=== PATIENT | male | born 1975 | race Caucasian/White ===

== ENCOUNTER 2018-01-07 19:00 | Observation (INO) | payer BC ==
[2018-01-07] MEDS ORDERED: SODIUM CHLORIDE 0.9% 1,000 ML IV STA ×2 (19:23)
[2018-01-07] MEDS ORDERED: ONDANSETRON 4 MG/2 ML VIAL IVP STA (19:23)
[2018-01-07] MEDS ORDERED: MORPHINE SULFATE 2 MG/ML SYRINGE IVP STA (19:23)
[2018-01-07 19:55] LABS: Basophils % (A) 1 %; Eosinophils # (A) 0.2 k/uL (0-0.7); Eosinophils % (A) 4 %; HCT 45.9 % (39.0-53.0); HGB 15.6 gm/dL (13.0-17.5); Lymphocytes # (A) 2.1 k/uL (1.0-4.8); Lymphocytes % (A) 34 %; MCH 29.2 pg (25.0-35.0); MCV 85.8 fL (80.0-100.0); Mean Platelet Volume 8.7; Monocytes # (A) 0.5 k/uL (0-1.0); Monocytes % (A) 8 %; Neutrophils # (A) 3.1 k/uL (1.3-7.7); Neutrophils % (A) 52 %; Platelet Count 209 k/uL (150-450); RBC 5.36 m/uL (4.30-5.90); RDW 12.2 % (11.5-15.5); WBC 6.1 k/uL (3.8-10.6)
[2018-01-07 20:02] LABS: Appearance,Urine Clear (Clear); Bilirubin,Urine Negative (Negative); Blood,Urine Negative (Negative); Color,Urine Yellow; Glucose,Urine (UA) Negative (Negative); Ketones,Urine Negative (Negative); Leukocyte Esterase,Urine Negative (Negative); Nitrite,Urine Negative (Negative); Protein,Urine Negative (Negative); Specific Gravity,Urine 1.015 (1.001-1.035)
[2018-01-07 20:16] LABS: ALT 29 U/L (21-72); AST 21 U/L (17-59); Albumin 4.2 g/dL (3.5-5.0); Alkaline Phosphatase 93 U/L (38-126); Amylase 39 U/L (30-110); Anion Gap 10 mmol/L; Blood Urea Nitrogen 14 mg/dL (9-20); Calcium 9.3 mg/dL (8.4-10.2); Carbon Dioxide 23 mmol/L (22-30); Chloride 107 mmol/L (98-107); Glucose 86 mg/dL (74-99); Lipase 51 U/L (23-300); Sodium 140 mmol/L (137-145); Total Bilirubin 0.3 mg/dL (0.2-1.3); Total Protein 6.9 g/dL (6.3-8.2)
--- NOTE | 2018-01-07 20:30 | XR ---
EXAMINATION TYPE: XR KUB DATE OF EXAM: 01/07/2018 COMPARISON: NONE HISTORY: Right-sided pain TECHNIQUE: 2 views FINDINGS: Bowel gas pattern is normal. There is no sign of intestinal obstruction or pneumoperitoneum . Fecal pattern is normal. There is no evidence of a mass. IMPRESSION: Nonacute abdomen.
--- NOTE | 2018-01-07 20:59 | US ---
EXAMINATION TYPE: US abdomen complete DATE OF EXAM: 01/07/2018 COMPARISON: 03/24/2016 CLINICAL HISTORY: abdominal pain. RUQ pain, Had coffee 5 hours ago EXAM MEASUREMENTS: Liver Length: 16.3 cm Gallbladder Wall: 0.3 cm CHD: 0.3 cm Spleen: 11.6 cm Right Kidney: 10.5 x 5.5 x 5.0 cm Left Kidney: 11.8 x 5.6 x 6.1 cm Limited exam due to overlying bowel gas Pancreas: Obscured by bowel gas Liver: Appears course. Gallbladder: GB wall upper limits of normal. No stones or sludge seen. Evidence for sonographic Arellano's sign: neg CBD: Obscured by overlying bowel gas CHD: wnl Spleen: wnl Right Kidney: wnl Left Kidney: lower pole cystic appearing lesion = 4.1 x 2.5 x 3.1 cm Upper IVC: wnl Abd Aorta: Distal portion obscured by overlying bowel gas IMPRESSION: No gallstones or dilated ducts. Borderline gallbladder wall thickening. Cortical thinning in the lower pole right kidney. No hydronephrosis. Exophytic left renal cortical cyst. Cyst is incre ased in size compared to old exam.
--- NOTE | 2018-01-07 21:06 | ED ---
Abdominal Pain HPI - General Chief Complaint: Abdominal Pain Stated Complaint: Abd.pain Time Seen by Provider: 01/07/18 19:14 Source: patient Mode of arrival: ambulatory Limitations: no limitations - History of Present Illness Initial Comments: 42 years old male has right upper quadrant chest is ongoing for last 3 days he was seen in one of the urgent care they referred him over here he denies any fever no chills he been nauseous no vomiting he has no history of abdominal surgeries in the in the past and now he denies any history of peptic ulcer disease. Review of system is unremarkable otherwise - Related Data Allergies Allergy/AdvReac Type Severity Reaction Status Date / Time No Known Allergies Allergy Verified 01/07/18 19:11 Review of Systems ROS Statement: Those systems with pertinent positive or pertinent negative responses have been documented in the HPI. ROS Other: All systems not noted in ROS Statement are negative. Past Medical History Past Medical History: No Reported History History of Any Multi-Drug Resistant Organisms: None Reported Additional Past Surgical History / Comment(s): kidney surgery Past Psychological History: No Psychological Hx Reported Smoking Status: Never smoker Past Alcohol Use History: Occasional Past Drug Use History: None Reported General Exam - General Exam Comments Initial Comments: General: The patient is awake and alert, in no distress, and does not appear acutely ill. Skin: Skin is warm and dry and no rashes or lesions are noted. Eye: Pupils are equal, round and reactive to light, extra-ocular movements are intact; there is normal conjunctiva bilaterally. Ears, nose, mouth and throat: There are moist mucous membranes and no oral lesions. Neck: The neck is supple, there is no tenderness or JVD. Cardiovascular: There is a regular rate and rhythm. No murmur, rub or gallop is appreciated. Respiratory: To auscultation bilateral, no wheezing no rhonchi no distress respiratory guevara noticed Gastrointestinal: Tender in right upper quadrant area, patient does guard to some extent positive bowel sounds no guarding no rebounds. Back: There is no tenderness to palpation in the midline. There is no obvious deformity. Musculoskeletal: Normal ROM, no tenderness, There is no pedal edema. There is no calf tenderness or swelling. No cords were appreciated. Neurological: CN II-XII intact, Cranial nerves III through XII are intact. There are no obvious motor or sensory deficits. Coordination appears grossly intact. Speech is normal. Psychiatric: Cooperative, appropriate mood & affect, normal judgment. Limitations: no limitations Course Vital Signs 01/07/18 19:11 Temperature 98.1 F Pulse Rate 71 Respiratory 18 Rate Blood Pressure 144/80 O2 Sat by Pulse 98 Oximetry Medical Decision Making - Medical Decision Making Shouldn't is tender in the right upper quadrant area, CBC is normal, his afebrile liver functions are within normal range ultrasound of the right upper quadrant showed some thickening of the gallbladder wall no gallstones noticed him a considering is tenderness over the right upper quadrant area. Dr. Dr. Joshi she could watch him overnight because he is in a lot of pain - Lab Data Result diagrams: 01/07/18 19:40 01/07/18 19:40 Lab Results 01/07/18 01/07/18 01/07/18 Range/Units 19:40 19:40 19:50 WBC 6.1 (3.8-10.6) k/uL RBC 5.36 (4.30-5.90) m/uL Hgb 15.6 (13.0-17.5) gm/dL Hct 45.9 (39.0-53.0) % MCV 85.8 (80.0-100.0) fL MCH 29.2 (25.0-35.0) pg MCHC 34.0 (31.0-37.0) g/dL RDW 12.2 (11.5-15.5) % Plt Count 209 (150-450) k/uL Neutrophils % 52 % Lymphocytes % 34 % Monocytes % 8 % Eosinophils % 4 % Basophils % 1 % Neutrophils # 3.1 (1.3-7.7) k/uL Lymphocytes # 2.1 (1.0-4.8) k/uL Monocytes # 0.5 (0-1.0) k/uL Eosinophils # 0.2 (0-0.7) k/uL Basophils # 0.0 (0-0.2) k/uL Sodium 140 (137-145) mmol/L Potassium 4.0 (3.5-5.1) mmol/L Chloride 107 (98-107) mmol/L Carbon Dioxide 23 (22-30) mmol/L Anion Gap 10 mmol/L BUN 14 (9-20) mg/dL Creatinine 0.80 (0.66-1.25) mg/dL Est GFR (CKD-EPI)AfAm >90 (>60 ml/min/1.73 sqM) Est GFR (CKD-EPI)NonAf >90 (>60 ml/min/1.73 sqM) Glucose 86 (74-99) mg/dL Calcium 9.3 (8.4-10.2) mg/dL Total Bilirubin 0.3 (0.2-1.3) mg/dL AST 21 (17-59) U/L ALT 29 (21-72) U/L Alkaline Phosphatase 93 (38-126) U/L Total Protein 6.9 (6.3-8.2) g/dL Albumin 4.2 (3.5-5.0) g/dL Amylase 39 (30-110) U/L Lipase 51 (23-300) U/L Urine Color Yellow Urine Appearance Clear (Clear) Urine pH 6.0 (5.0-8.0) Ur Specific [place] 1.015 (1.001-1.035) Urine Protein Negative (Negative) Urine Glucose (UA) Negative (Negative) Urine Ketones Negative (Negative) Urine Blood Negative (Negative) Urine Nitrite Negative (Negative) Urine Bilirubin Negative (Negative) Urine Urobilinogen 2.0 (<2.0) mg/dL Ur Leukocyte Esterase Negative (Negative) Disposition Clinical Impression: Right upper quadrant pain Disposition: ADMITTED IP TO THIS HOSP Condition: Good Referrals: Maira Meneses MD [Primary Care Provider] - 1-2 days
[2018-01-07] MEDS ORDERED: SODIUM CHLORIDE 0.9% 1,000 ML IV ONE (21:11)
[2018-01-07] MEDS ORDERED: PIPERACILLIN-TAZOBACTAM 3.375 GM in DEXTROSE/WATER 1 50ML.BAG IVPB STA (21:13)
[2018-01-07 22:36] VITALS: RESP 16; BMI 31.7
[2018-01-07] MEDS ORDERED: MORPHINE SULFATE 4 MG/ML SYRINGE IVP PRN (22:53)
[2018-01-08] MEDS: PIPERACILLIN-TAZOBACTAM 3.375 GM in DEXTROSE/WATER 1 50ML.BAG IVPB SCH ×2 (05:18→14:52)
--- NOTE | 2018-01-08 13:17 | P.GSHP ---
History of Present Illness H&P Date: 01/08/18 CHIEF COMPLAINT: Right upper quadrant abdominal pain 4 days HISTORY OF PRESENT ILLNESS: The patient is a 42-year-old male who presents with history of right upper quadrant abdominal pain for 4 days following eating fried pork chops. Reported the pain started 2 hours after his lunch. He continued to work the next day after. Secondary to severe pain right upper quadrant radiating to the right upper back he presented to the emergency room. He had ultrasound which had been initially negative for gallstones. He does report a strong family history of gallbladder disease were his father had his gallbladder removal. Since admission, he still complains of right upper quadrant discomfort however the pain has been improved. He also reports mild right shoulder discomfort. 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 PAST MEDICAL HISTORY: Please see list PAST SURGICAL HISTORY: Please see list MEDICATIONS: Please see list ALLERGIES: Denies. SOCIAL HISTORY: No illicit drug use or recent tobacco use FAMILY HISTORY: Pertinent for gallbladder disease REVIEW OF ORGAN SYSTEMS: CONSTITUTIONAL: No reports of fevers or chills. HEENT: Denies any troubles with the vision or hearing. ENDOCRINE: No reports of hypothyroidism. No diabetes. RESPIRATORY: No recent pneumonias. CARDIOVASCULAR: Denies chest pain or palpitations GI: No blood in stools or constipation. In the past, he reports no abdominal pain after eating fatty foods. MUSCULOSKELETAL: Has occasional joint pain including back pain. NEURO: No seizure disorders or headaches. No recent stroke. PSYCH: No depression or suicidal ideation. HEMATOLOGIC: No personal or family history of DVTs or pulmonary emboli. PHYSICAL EXAM: VITAL SIGNS: Afebrile vital signs stable GENERAL: Well-developed pleasant male in no acute distress. HEENT: No scleral icterus. Extraocular movements grossly intact. Moist buccal mucosa. NECK: Supple without lymphadenopathy. CHEST: Unlabored respirations. Equal bilateral excursions. CARDIOVASCULAR: Regular rate regular rhythm rhythm. Distal 2+ pulses. ABDOMEN: Soft, nondistended. Tender along the right upper quadrant, and right upper back MUSCULOSKELETAL: No clubbing, cyanosis, or edema. NEURO : No focal or lateralizing signs. Cranial nerves II-12 within normal limits. PSYCH: Alert and oriented to person, place and time. SKIN: Profuse. Good skin turgor ASSESSMENT: 1. Right upper quadrant abdominal pain 2. Family history of gallbladder disease in his father STUDIES: Ultrasound imaging personally reviewed. Previous HIDA scan also personally reviewed. Both findings tender for acute cholecystitis. PLAN: 1. With the severity is with pain, recommend repeat HIDA scan to exclude acute cholecystitis 2. Additionally low-fat diet advised 3. For acute cholecystitis, then he will need urgent surgical intervention versus antibiotics 4. Alternatively, right upper quadrant abdominal may also be secondary to duodenal peptic ulcers. Will need an upper endoscopy at some point. 5. Will start proton pump inhibitors as well. Past Medical History Past Medical History: No Reported History History of Any Multi-Drug Resistant Organisms: None Reported Additional Past Surgical History / Comment(s): kidney surgery Past Anesthesia/Blood Transfusion Reactions: No Reported Reaction Past Psychological History: No Psychological Hx Reported Smoking Status: Former smoker Past Alcohol Use History: Occasional Past Drug Use History: None Reported Medications and Allergies Home Medications Medication Instructions Recorded Confirmed Type Vit C/E/Zn/Coppr/Lutein/Zeaxan 1 cap PO QAM 01/07/18 01/07/18 History [Preservision Areds 2 Softgel] Allergies Allergy/AdvReac Type Severity Reaction Status Date / Time No Known Allergies Allergy Verified 01/07/18 21:19 Surgical - Exam Vital Signs Temp Pulse Resp BP Pulse Ox 98.1 F 71 18 144/80 98 01/07/18 19:11 01/07/18 19:11 01/07/18 19:11 01/07/18 19:11 01/07/18 19:11 Results - Labs 01/07/18 19:40 01/07/18 19:40 Diabetes panel 01/07/18 Range/Units 19:40 Sodium 140 (137-145) mmol/L Potassium 4.0 (3.5-5.1) mmol/L Chloride 107 (98-107) mmol/L Carbon Dioxide 23 (22-30) mmol/L BUN 14 (9-20) mg/dL Creatinine 0.80 (0.66-1.25) mg/dL Glucose 86 (74-99) mg/dL Calcium 9.3 (8.4-10.2) mg/dL AST 21 (17-59) U/L ALT 29 (21-72) U/L Alkaline Phosphatase 93 (38-126) U/L Total Protein 6.9 (6.3-8.2) g/dL Albumin 4.2 (3.5-5.0) g/dL Calcium panel 01/07/18 Range/Units 19:40 Calcium 9.3 (8.4-10.2) mg/dL Albumin 4.2 (3.5-5.0) g/dL Pituitary panel 01/07/18 Range/Units 19:40 Sodium 140 (137-145) mmol/L Potassium 4.0 (3.5-5.1) mmol/L Chloride 107 (98-107) mmol/L Carbon Dioxide 23 (22-30) mmol/L BUN 14 (9-20) mg/dL Creatinine 0.80 (0.66-1.25) mg/dL Glucose 86 (74-99) mg/dL Calcium 9.3 (8.4-10.2) mg/dL Adrenal panel 01/07/18 Range/Units 19:40 Sodium 140 (137-145) mmol/L Potassium 4.0 (3.5-5.1) mmol/L Chloride 107 (98-107) mmol/L Carbon Dioxide 23 (22-30) mmol/L BUN 14 (9-20) mg/dL Creatinine 0.80 (0.66-1.25) mg/dL Glucose 86 (74-99) mg/dL Calcium 9.3 (8.4-10.2) mg/dL Total Bilirubin 0.3 (0.2-1.3) mg/dL AST 21 (17-59) U/L ALT 29 (21-72) U/L Alkaline Phosphatase 93 (38-126) U/L Total Protein 6.9 (6.3-8.2) g/dL Albumin 4.2 (3.5-5.0) g/dL - Imaging US - abdomen: report reviewed, image reviewed (Previous HIDA scan from 2016 also reviewed) Assessment and Plan (1) Family history of gallbladder disease in father Current Visit: Yes Status: Acute Code(s): Z83.79 - FAMILY HISTORY OF OTHER DISEASES OF THE DIGESTIVE SYSTEM SNOMED Code(s): 415823755 (2) Right upper quadrant pain Current Visit: Yes Status: Acute Code(s): R10.11 - RIGHT UPPER QUADRANT PAIN SNOMED Code(s): 965969859 (3) Obesity due to excess calories Current Visit: Yes Status: Acute Code(s): E66.09 - OTHER OBESITY DUE TO EXCESS CALORIES SNOMED Code(s): 029672054 (4) BMI 31.0-31.9,adult Current Visit: Yes Status: Acute Code(s): Z68.31 - BODY MASS INDEX (BMI) 31.0-31.9, ADULT SNOMED Code(s): 018162111
[2018-01-08 15:01] VITALS: BP 124/80; PULSE 62; TEMP 98.2
--- NOTE | 2018-01-08 19:35 | NM ---
EXAMINATION TYPE: NM hepatobiliary w CCK DATE OF EXAM: 01/08/2018 COMPARISON: Ultrasound abdomen 01/07/2018, previous hepatobiliary scan March 2016 HISTORY: Cholecystitis TECHNIQUE: After the intravenous administration of 5 mCi Tc 99m Mebrofenin hepatobiliary scintigraphy is performed. Immediate images post injection. FINDINGS: There is satisfactory initial accumulation of tracer by the liver. The gallbladder is visualized wit hin 14 minutes. The small bowel activity is noted within a minutes. At one hour CCK was administere d, patient was injected with 1.95 mcg of Kinevac, and gallbladder ejection fraction is calculated at 41 %, in the normal range. Therefore there is no scintigraphic evidence of cystic or common bile srinivas t obstruction to suggest acute cholecystitis or gallbladder dyskinesia. IMPRESSION: Exam is within normal limits.
--- NOTE | 2018-01-09 16:22 | P.DS ---
Providers Date of admission: 01/07/18 21:11 Expected date of discharge: 01/08/18 Attending physician: Nadeen Joshi Primary care physician: Maira Meneses - Discharge Diagnosis(es) (1) Family history of gallbladder disease in father Status: Acute (2) Right upper quadrant pain Status: Acute (3) Obesity due to excess calories Status: Acute (4) BMI 31.0-31.9,adult Status: Acute Hospital Course: CHIEF COMPLAINT: Right upper quadrant abdominal pain 4 days HISTORY OF PRESENT ILLNESS: The patient is a 42-year-old male who presents with history of right upper quadrant abdominal pain for 4 days following eating fried pork chops. Reported the pain started 2 hours after his lunch. He continued to work the next day after. Secondary to severe pain right upper quadrant radiating to the right upper back he presented to the emergency room. He had ultrasound which had been initially negative for gallstones. He does report a strong family history of gallbladder disease were his father had his gallbladder removal. Since admission, he still complains of right upper quadrant discomfort however the pain has been improved. He also reports mild right shoulder discomfort. 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 PAST MEDICAL HISTORY: Please see list PAST SURGICAL HISTORY: Please see list MEDICATIONS: Please see list ALLERGIES: Denies. SOCIAL HISTORY: No illicit drug use or recent tobacco use FAMILY HISTORY: Pertinent for gallbladder disease REVIEW OF ORGAN SYSTEMS: CONSTITUTIONAL: No reports of fevers or chills. HEENT: Denies any troubles with the vision or hearing. ENDOCRINE: No reports of hypothyroidism. No diabetes. RESPIRATORY: No recent pneumonias. CARDIOVASCULAR: Denies chest pain or palpitations GI: No blood in stools or constipation. In the past, he reports no abdominal pain after eating fatty foods. MUSCULOSKELETAL: Has occasional joint pain including back pain. NEURO: No seizure disorders or headaches. No recent stroke. PSYCH: No depression or suicidal ideation. HEMATOLOGIC: No personal or family history of DVTs or pulmonary emboli. PHYSICAL EXAM: VITAL SIGNS: Afebrile vital signs stable GENERAL: Well-developed pleasant male in no acute distress. HEENT: No scleral icterus. Extraocular movements grossly intact. Moist buccal mucosa. NECK: Supple without lymphadenopathy. CHEST: Unlabored respirations. Equal bilateral excursions. CARDIOVASCULAR: Regular rate regular rhythm rhythm. Distal 2+ pulses. ABDOMEN: Soft, nondistended. Tender along the right upper quadrant, and right upper back MUSCULOSKELETAL: No clubbing, cyanosis, or edema. NEURO : No focal or lateralizing signs. Cranial nerves II-12 within normal limits. PSYCH: Alert and oriented to person, place and time. SKIN: Profuse. Good skin turgor ASSESSMENT: 1. Right upper quadrant abdominal pain 2. Family history of gallbladder disease in his father STUDIES: Ultrasound imaging personally reviewed. Previous HIDA scan also personally reviewed. Both findings tender for acute cholecystitis. PLAN: 1. With the severity is with pain, recommend repeat HIDA scan to exclude acute cholecystitis 2. Additionally low-fat diet advised 3. For acute cholecystitis, then he will need urgent surgical intervention versus antibiotics 4. Alternatively, right upper quadrant abdominal may also be secondary to duodenal peptic ulcers. Will need an upper endoscopy at some point. 5. Will start proton pump inhibitors as well. ADDENDUM: Inpatient HIDA scan demonstrates no evidence of acute cholecystitis. Patient was tolerating diet and stable for discharge. Low-fat diet was advised. Pertinent Studies: HIDA scan negative for acute cholecystitis Ultrasound negative for gallstones Patient Condition at Discharge: Stable Plan - Discharge Summary New Discharge Prescriptions: New Omeprazole 40 mg PO DAILY #14 capsule. No Action Vit C/E/Zn/Coppr/Lutein/Zeaxan [Preservision Areds 2 Softgel] 1 cap PO QAM Discharge Medication List Vit C/E/Zn/Coppr/Lutein/Zeaxan [Preservision Areds 2 Softgel] 1 cap PO QAM 01/07 [History] Omeprazole 40 mg PO DAILY #14 capsule. 01/08/18 [Rx] Follow up Appointment(s)/Referral(s): Nadeen Joshi MD [STAFF PHYSICIAN] - 01/25/18 Maira Meneses MD [Primary Care Provider] - 1-2 days Patient Instructions/Handouts: Low Fat Diet (DC) Activity/Diet/Wound Care/Special Instructions: Low-fat diet only. Discharge Disposition: HOME SELF-CARE
== END 2018-01-08 20:58 | disposition home or self-care (01) ==
LOC: EC 19:00 → 3SUR 21:11
PROVIDERS: ADMIT Surgery Plastic and Reconstructive Surgery; ATTEND Surgery Plastic and Reconstructive Surgery
DX: R10.11 Right upper quadrant pain (principal); R11.0 Nausea; M25.511 Pain in right shoulder; E66.09 Other obesity due to excess calories; Z68.31 Body mass index [BMI] 31.0-31.9, adult; Z87.891 Personal history of nicotine dependence; Z83.79 Family history of other diseases of the digestive system
CPT/HCPCS: 99285 ×2; 96365 ×2; 96375 ×3; 96361 ×5; 96366 ×2; 36415; 80053; 82150; 83605; 83690; 85025; 81003; 87040; 74018; 76700; 78227; G0378 ×2; A9537; J2405; J2805; J2270; J2543 ×2

== ENCOUNTER → 2018-11-29 | Outpatient (CLI) | payer BC ==
--- NOTE | 2018-11-29 10:24 | CT ---
EXAMINATION TYPE: CT abdomen pelvis w con DATE OF EXAM: 11/29/2018 COMPARISON: Complete abdominal ultrasound January 07, 2018 HISTORY: Left lower quadrant pain CT DLP: 1479.9 mGycm, Automated Exposure Control for Dose Reduction was Utilized. CONTRAST: CT scan of the abdomen and pelvis is performed without oral but with IV Contrast, patient injected wi th 100 mL of Isovue 300. FINDINGS: LUNG BASES: No significant abnormality is appreciated. LIVER/GB: Liver is diffusely low dense consistent with fatty infiltration. Findings correlate with ul trasound. PANCREAS: No significant abnormality is seen. SPLEEN: No significant abnormality is seen. ADRENALS: No significant abnormality is seen. KIDNEYS: There is slightly lobulated otherwise simple appearing 3.3 cm thin-walled cyst laterally low er pole of the left kidney. Subcentimeter cyst is seen just superior to this. Cortical thinning right kidney lower pole level is redemonstrated. There is symmetric cortical medullary uptake and excretio n without hydronephrosis seen bilaterally. Some scattered pelvic phleboliths are present. BOWEL: Evaluation bowel slightly suboptimal secondary to lack of enteric contrast. There is no suspic ion of small or large bowel dilatation. Normal-appearing appendix is seen from cecum inferiorly in th e right lower quadrant. There are 1-2 diverticula in the sigmoid colon with mild fat stranding adjace nt to one diverticula coronal image 35 and axial image 67 consistent with a mild uncomplicated acute diverticulitis left upper pelvis proximal sigmoid colon level. No free air is seen. A well-formed flu id collection or abscess is noted. PROSTATE/SEMINAL VESICLES: Prostate gland is normal in size with central calcifications. LYMPH NODES: No greater than 1cm abdominal or pelvic lymph nodes are appreciated. OSSEOUS STRUCTURES: Mild facet arthropathy lower lumbar spine is seen. OTHER: There are small fat-containing bilateral inguinal hernias. IMPRESSION: CT findings are consistent with a mild uncomplicated acute diverticulitis proximal sigmoi d colon in the left upper pelvis. Results communicated to ordering physician via telephone at time of dictation. A Document Only message has been documented for Maira Meneses MD in the [employer] system on 11/29/2018 10:22 AM, Message ID [id number].
== END | disposition home or self-care (01) ==
LOC: RADCTMAIN 09:32
PROVIDERS: ATTEND Internal Medicine
DX: R10.30 Lower abdominal pain, unspecified (principal)
CPT/HCPCS: 74177; Q9967

== ENCOUNTER 2019-07-10 10:43 | Observation (INO) | payer BC ==
--- NOTE | 2019-07-10 11:21 | ED ---
General Adult HPI - General Chief complaint: Abdominal Pain Stated complaint: fever, pain in rt side Time Seen by Provider: 07/10/19 11:00 Source: patient, RN notes reviewed, old records reviewed Mode of arrival: ambulatory Limitations: no limitations - History of Present Illness Initial comments: This 44-year-old male who presents emergency Department with a past medical history significant for diverticulitis. Patient comes in today complaining of r ight-sided mid abdominal pain. Patient states this started early Wednesday morning and discontinued since then. Patient states pressing on that point causes significant pain. Patient states he did vomit on Wednesday but didn't vomit on Wednesday and felt a little better. Patient states he continues to have the pain however patient is not vomiting currently had no diarrhea. Patient states he had fevers on Wednesday but they're gone currently. Patient denies any cough. Patient denies difficulty breathing shortness of breath. Patient denies chest pain. Patient denies headache patient denies numbness weakness. Patient denies lightheadedness or dizziness. He says the child he had some sort of kidney surgery patient does not know what it was and his mother does not remember because she is 86 - Related Data Home Medications Medication Instructions Recorded Confirmed Vit C/E/Zn/Coppr/Lutein/Zeaxan 1 cap PO QAM 01/07/18 01/07/18 [Preservision Areds 2 Softgel] Previous Rx's Medication Instructions Recorded Omeprazole 40 mg PO DAILY #14 capsule. 01/08/18 Allergies Allergy/AdvReac Type Severity Reaction Status Date / Time No Known Allergies Allergy Verified 07/10/19 10:59 Review of Systems ROS Statement: Those systems with pertinent positive or pertinent negative responses have been documented in the HPI. ROS Other: All systems not noted in ROS Statement are negative. Past Medical History Past Medical History: No Reported History Additional Past Medical History / Comment(s): diverticulitis, thicken nair of gallbladder History of Any Multi-Drug Resistant Organisms: None Reported Additional Past Surgical History / Comment(s): kidney surgery Past Anesthesia/Blood Transfusion Reactions: No Reported Reaction Past Psychological History: No Psychological Hx Reported Smoking Status: Former smoker Past Alcohol Use History: Occasional Past Drug Use History: None Reported General Exam - General Exam Comments Initial Comments: GENERAL: Patient is well-developed and well-nourished. Patient is nontoxic and well- hydrated and is in mild distress. ENT: Neck is soft and supple. No significant lymphadenopathy is noted. Oropharynx is clear. Moist mucous membranes. Neck has full range of motion without eliciting any pain. EYES: The sclera were anicteric and conjunctiva were pink and moist. Extraocular movements were intact and pupils were equal round and reactive to light. Eyelids were unremarkable. PULMONARY: Unlabored respirations. Good breath sounds bilaterally. No audible rales rhonchi or wheezing was noted. CARDIOVASCULAR: There is a regular rate and rhythm without any murmurs gallops or rubs. ABDOMEN: Patient has point tenderness in the right mid flank. Right upper quadrant does not have tenderness in the right upper quadrant does not have tenderness SKIN: Skin is clear with no lesions or rashes and otherwise unremarkable. NEUROLOGIC: Patient is alert and oriented x3. Cranial nerves II through XII are grossly intact. Motor and sensory are also intact. Normal speech, volume and content. Symmetrical smile. MUSCULOSKELETAL: Normal extremities with adequate strength and full range of motion. No lower extremity swelling or edema. No calf tenderness. LYMPHATICS: No significant lymphadenopathy is noted PSYCHIATRIC: Normal psychiatric evaluation. Limitations: no limitations Course Vital Signs 07/10/19 10:59 Temperature 98 F Pulse Rate 90 Respiratory 18 Rate Blood Pressure 161/97 O2 Sat by Pulse 97 Oximetry Medical Decision Making - Medical Decision Making Computed tomography scan showed acute appendicitis. Spoke with Dr. Paul Jerez came down immediately to see the patient and scheduled surgery for the afternoon. - Lab Data Result diagrams: 07/10/19 11:23 07/10/19 11:23 Lab Results 07/10/19 07/10/19 07/10/19 Range/Units 11:23 11:23 12:20 WBC 7.2 (3.8-10.6) k/uL RBC 5.37 (4.30-5.90) m/uL Hgb 15.5 (13.0-17.5) gm/dL Hct 46.6 (39.0-53.0) % MCV 86.6 (80.0-100.0) fL MCH 28.9 (25.0-35.0) pg MCHC 33.3 (31.0-37.0) g/dL RDW 11.9 (11.5-15.5) % Plt Count 223 (150-450) k/uL Neutrophils % 65 % Lymphocytes % 23 % Monocytes % 7 % Eosinophils % 2 % Basophils % 1 % Neutrophils # 4.6 (1.3-7.7) k/uL Lymphocytes # 1.7 (1.0-4.8) k/uL Monocytes # 0.5 (0-1.0) k/uL Eosinophils # 0.1 (0-0.7) k/uL Basophils # 0.0 (0-0.2) k/uL Sodium 138 (137-145) mmol/L Potassium 4.1 (3.5-5.1) mmol/L Chloride 105 (98-107) mmol/L Carbon Dioxide 24 (22-30) mmol/L Anion Gap 9 mmol/L BUN 13 (9-20) mg/dL Creatinine 0.72 (0.66-1.25) mg/dL Est GFR (CKD-EPI)AfAm >90 (>60 ml/min/1.73 sqM) Est GFR (CKD-EPI)NonAf >90 (>60 ml/min/1.73 sqM) Glucose 105 H (74-99) mg/dL Calcium 9.2 (8.4-10.2) mg/dL Total Bilirubin 0.5 (0.2-1.3) mg/dL AST 22 (17-59) U/L ALT 29 (4-49) U/L Alkaline Phosphatase 72 (38-126) U/L Total Protein 6.9 (6.3-8.2) g/dL Albumin 4.2 (3.5-5.0) g/dL Amylase 35 (30-110) U/L Lipase 35 (23-300) U/L Urine Color Yellow Urine Appearance Cloudy (Clear) Urine pH 8.0 (5.0-8.0) Ur Specific [place] 1.023 (1.001-1.035) Urine Protein Trace H (Negative) Urine Glucose (UA) Negative (Negative) Urine Ketones Negative (Negative) Urine Blood Negative (Negative) Urine Nitrite Negative (Negative) Urine Bilirubin Negative (Negative) Urine Urobilinogen 2.0 (<2.0) mg/dL Ur Leukocyte Esterase Negative (Negative) Urine RBC 1 (0-5) /hpf Urine WBC 1 (0-5) /hpf Ur Squamous Epith Cells <1 (0-4) /hpf Amorphous Sediment Occasional H (None) /hpf Urine Bacteria Occasional H (None) /hpf Urine Mucus Rare H (None) /hpf Disposition Clinical Impression: Acute appendicitis Disposition: ADMITTED IP TO THIS HOSP Referrals: Maira Meneses MD [Primary Care Provider] - 1-2 days Time of Disposition: 13:26
[2019-07-10 11:39] LABS: Basophils % (A) 1 %; Eosinophils # (A) 0.1 k/uL (0-0.7); Eosinophils % (A) 2 %; HCT 46.6 % (39.0-53.0); HGB 15.5 gm/dL (13.0-17.5); Lymphocytes # (A) 1.7 k/uL (1.0-4.8); Lymphocytes % (A) 23 %; MCH 28.9 pg (25.0-35.0); MCHC 33.3 g/dL (31.0-37.0); MCV 86.6 fL (80.0-100.0); Mean Platelet Volume 9.1; Monocytes # (A) 0.5 k/uL (0-1.0); Monocytes % (A) 7 %; Neutrophils # (A) 4.6 k/uL (1.3-7.7); Neutrophils % (A) 65 %; Platelet Count 223 k/uL (150-450); RBC 5.37 m/uL (4.30-5.90); RDW 11.9 % (11.5-15.5); WBC 7.2 k/uL (3.8-10.6)
[2019-07-10 12:01] LABS: ALT 29 U/L (4-49); AST 22 U/L (17-59); African American GFR (CKD) >90 (>60 ml/min/1.73 sqM); Albumin 4.2 g/dL (3.5-5.0); Alkaline Phosphatase 72 U/L (38-126); Amylase 35 U/L (30-110); Anion Gap 9 mmol/L; Blood Urea Nitrogen 13 mg/dL (9-20); Calcium 9.2 mg/dL (8.4-10.2); Carbon Dioxide 24 mmol/L (22-30); Chloride 105 mmol/L (98-107); Glucose 105 mg/dL (74-99); Non-African American GFR(CKD) >90 (>60 ml/min/1.73 sqM); Potassium 4.1 mmol/L (3.5-5.1); Sodium 138 mmol/L (137-145); Total Bilirubin 0.5 mg/dL (0.2-1.3); Total Protein 6.9 g/dL (6.3-8.2)
--- NOTE | 2019-07-10 12:42 | CT ---
EXAMINATION TYPE: CT abdomen pelvis w con DATE OF EXAM: 07/10/2019 COMPARISON: 11/29/2018 HISTORY: Rt side pain CT DLP: 1565.5 mGycm CONTRAST: CT scan of the abdomen and pelvis is performed without Oral Contrast and with IV Contrast, patient in jected with 100 mL of Isovue 300. FINDINGS: LUNG BASES-: No visible nodule. No infiltrate. LIVER/GB: No calcified gallstones. No space occupying hepatic lesion. Biliary tree is of normal ca liber. PANCREAS: No inflammation. No distinct mass. SPLEEN: No splenic enlargement. No lesion seen. ADRENALS: No nodule. No thickening. KIDNEYS/BLADDER: No hydronephrosis. No nephrolithiasis. Renal cystic changes noted. Urinary bladder wall thickening may be related to poor distention. Cystitis is not excluded. Correlate clinically. BOWEL: Dilated appendix measuring 1.2 cm with a surrounding inflammatory change compatible with acute appendicitis. No evidence of perforation or abscess. Normal bowel caliber. Scattered sigmoid divert iculosis. No diverticulitis. GENITAL ORGANS: No gross abnormality. LYMPH NODES: No greater than 1cm abdominal or pelvic lymph nodes are appreciated. AORTA: No significant abnormality. OSSEOUS STRUCTURES: No significant abnormality is seen. OTHER: No significant additional abnormality is seen. IMPRESSION: 1. Findings compatible with mild acute appendicitis. 2. Urinary bladder wall thickening as noted above.
[2019-07-10 12:58] LABS: Amorphous Sediment,Urine Occasional /hpf; Appearance,Urine Cloudy (Clear); Bacteria,Urine Occasional /hpf; Bilirubin,Urine Negative (Negative); Blood,Urine Negative (Negative); Color,Urine Yellow; Glucose,Urine (UA) Negative (Negative); Ketones,Urine Negative (Negative); Leukocyte Esterase,Urine Negative (Negative); Mucus,Urine Rare /hpf; Nitrite,Urine Negative (Negative); Protein,Urine Trace (Negative); RBC,Urine 1 /hpf (0-5); Specific Gravity,Urine 1.023 (1.001-1.035); Squamous Epithelial Cell,Urine <1 /hpf (0-4); WBC,Urine 1 /hpf (0-5)
[2019-07-10] MEDS ORDERED: SODIUM CHLORIDE 0.9% 1,000 ML IV ONE (13:26)
[2019-07-10] MEDS ORDERED: PIPERACILLIN-TAZOBACTAM 3.375 GM in SODIUM CHLORIDE 0.9% 100 ML IVPB STA (13:26)
[2019-07-10] MEDS ORDERED: HYDROmorphone 0.5 MG/0.5 ML SYRINGE IVP PRN (13:27)
--- NOTE | 2019-07-10 13:37 | P.GSHP ---
History of Present Illness H&P Date: 07/10/19 Chief Complaint: Right lower quadrant pain This is a 44 male who has a 5 day history of right lower quadrant pain. Patient underwent CAT scan evidence of retrocecal appendicitis. Past Medical History Past Medical History: No Reported History Additional Past Medical History / Comment(s): diverticulitis, thicken nair of gallbladder History of Any Multi-Drug Resistant Organisms: None Reported Additional Past Surgical History / Comment(s): kidney surgery Past Anesthesia/Blood Transfusion Reactions: No Reported Reaction Past Psychological History: No Psychological Hx Reported Smoking Status: Former smoker Past Alcohol Use History: Occasional Past Drug Use History: None Reported Medications and Allergies Home Medications Medication Instructions Recorded Confirmed Type Vit C/E/Zn/Coppr/Lutein/Zeaxan 1 cap PO QAM 01/07/18 01/07/18 History [Preservision Areds 2 Softgel] Omeprazole 40 mg PO DAILY #14 capsule. 01/08/18 Rx Allergies Allergy/AdvReac Type Severity Reaction Status Date / Time No Known Allergies Allergy Verified 07/10/19 10:59 Surgical - Exam Vital Signs Temp Pulse Resp BP Pulse Ox 98 F 90 18 161/97 97 07/10/19 10:59 07/10/19 10:59 07/10/19 10:59 07/10/19 10:59 07/10/19 10:59 - General well developed, well nourished, no distress - Eyes PERRL - ENT normal pinna - Neck no masses - Respiratory normal expansion - Cardiovascular Rhythm: regular - Abdomen Right-sided abdominal pain which radiates to the flank Abdomen: soft Results - Labs 07/10/19 11:23 07/10/19 11:23 Abnormal Lab Results - Last 24 Hours (Table) 07/10/19 07/10/19 Range/Units 11:23 12:20 Glucose 105 H (74-99) mg/dL Urine Protein Trace H (Negative) Amorphous Sediment Occasional H (None) /hpf Urine Bacteria Occasional H (None) /hpf Urine Mucus Rare H (None) /hpf Diabetes panel 07/10/19 Range/Units 11:23 Sodium 138 (137-145) mmol/L Potassium 4.1 (3.5-5.1) mmol/L Chloride 105 (98-107) mmol/L Carbon Dioxide 24 (22-30) mmol/L BUN 13 (9-20) mg/dL Creatinine 0.72 (0.66-1.25) mg/dL Glucose 105 H (74-99) mg/dL Calcium 9.2 (8.4-10.2) mg/dL AST 22 (17-59) U/L ALT 29 (4-49) U/L Alkaline Phosphatase 72 (38-126) U/L Total Protein 6.9 (6.3-8.2) g/dL Albumin 4.2 (3.5-5.0) g/dL Calcium panel 07/10/19 Range/Units 11:23 Calcium 9.2 (8.4-10.2) mg/dL Albumin 4.2 (3.5-5.0) g/dL Pituitary panel 07/10/19 Range/Units 11:23 Sodium 138 (137-145) mmol/L Potassium 4.1 (3.5-5.1) mmol/L Chloride 105 (98-107) mmol/L Carbon Dioxide 24 (22-30) mmol/L BUN 13 (9-20) mg/dL Creatinine 0.72 (0.66-1.25) mg/dL Glucose 105 H (74-99) mg/dL Calcium 9.2 (8.4-10.2) mg/dL Adrenal panel 07/10/19 Range/Units 11:23 Sodium 138 (137-145) mmol/L Potassium 4.1 (3.5-5.1) mmol/L Chloride 105 (98-107) mmol/L Carbon Dioxide 24 (22-30) mmol/L BUN 13 (9-20) mg/dL Creatinine 0.72 (0.66-1.25) mg/dL Glucose 105 H (74-99) mg/dL Calcium 9.2 (8.4-10.2) mg/dL Total Bilirubin 0.5 (0.2-1.3) mg/dL AST 22 (17-59) U/L ALT 29 (4-49) U/L Alkaline Phosphatase 72 (38-126) U/L Total Protein 6.9 (6.3-8.2) g/dL Albumin 4.2 (3.5-5.0) g/dL - Imaging CT scan - abdomen: pending (Dilated appendix, 1.2 cm with evidence of inflammation) Assessment and Plan Assessment: Appendicitis. Patient will undergo laparoscopic appendectomy.
[2019-07-10] MEDS ORDERED: HYDROcodone/APAP 5-325MG 1 EACH TAB PO PRN (13:42)
[2019-07-10] MEDS ORDERED: ACETAMINOPHEN TAB 325 MG TAB PO PRN (13:42)
[2019-07-10] MEDS ORDERED: ONDANSETRON 4 MG/2 ML VIAL IVP PRN (13:42)
[2019-07-10] MEDS ORDERED: LACTATED RINGERS 1,000 ML IV ONE (14:03)
[2019-07-10] MEDS ORDERED: ONDANSETRON 4 MG/2 ML VIAL IVP ONE (14:31)
[2019-07-10] MEDS ORDERED: DEXAMETHASONE SOD PHOSPHATE 10 MG/ML 1 ML VIAL IV ONE (14:31)
[2019-07-10] MEDS: HEPARIN SODIUM,PORCINE 5,000 UNIT/ML 1 ML VIAL SQ SCH ×2 (14:32→18:01)
[2019-07-10] MEDS ORDERED: SUCCINYLCHOLINE CHLORIDE 100 MG/5 ML SYR IV ONE (14:38)
[2019-07-10] MEDS ORDERED: GLYCOPYRROLATE 0.2 MG/ML 2 ML VIAL ONE (14:38)
[2019-07-10] MEDS ORDERED: PROPOFOL 10 MG/ML 20 ML VIAL IV ONE (14:38)
[2019-07-10] MEDS ORDERED: KETOROLAC 30 MG/ML 1 ML VIAL ONE (14:38)
[2019-07-10] MEDS ORDERED: LIDOCAINE 1% INJ 10MG/ML (20 ML MDV) ONE (14:38)
[2019-07-10] MEDS ORDERED: NEOSTIGMINE 1 MG/ML 10 ML VIAL ONE (14:38)
[2019-07-10] MEDS ORDERED: fentaNYL (PF) 50 MCG/ML 2 ML AMP ONE (14:38)
[2019-07-10] MEDS ORDERED: MIDAZOLAM 2 MG/2 ML VIAL ONE (14:38)
[2019-07-10] MEDS ORDERED: ROCURONIUM BROMIDE 10 MG/ML 5 ML VIAL IV ONE (14:38)
[2019-07-10] MEDS ORDERED: SODIUM CHLORIDE 0.9% 100 ML with ceFAZolin 2,000 MG IV ONE ×2 (14:54)
[2019-07-10] MEDS ORDERED: BUPIVACAINE (PF) 0.25% 30 ML VIAL SQ ONE (15:02)
--- NOTE | 2019-07-10 15:22 | P.OP ---
Date of Procedure: 07/10/19 Preoperative Diagnosis: Acute appendicitis Postoperative Diagnosis: Acute appendicitis Procedure(s) Performed: Laparoscopic appendectomy Anesthesia: YANNI Surgeon: Mayank Miller Estimated Blood Loss (ml): 5 Pathology: other (Appendix) Condition: stable Disposition: PACU Description of Procedure: HaThe patient's placed on the operating table in the supine position. The patient received general anesthesia. The abdomen was prepped and draped in the usual sterile fashion. The skin was anesthetized 1% local Xylocaine at the trocar sites. Using an 11 blade the skin was incised at the umbilicus. The umbilicus was grasped with a [place] clamp and then a Veress needle was placed into the peritoneal cavity. Position of the Veress needle was confirmed with positive drop test. After adequate insufflation a 5 mm trocar was placed into the peritoneal cavity. The abdomen was further insufflated. And then the laparoscope was placed in the peritoneal cavity. Next a 5 mm trocar was placed in the midline suprapubic position. And then a 10 mm trocar was placed in the midline epigastric position. The patient was rotated with the right side up and in Trendelenburg. The appendix was visualized. The appendix appeared to be inflamed. The appendix was grasped and then using the Harmonic scissors the mesoappendix was divided. A PDS Endoloop was then placed around the base of the appendix. And then the appendix was divided using Harmonic scissors. The appendix was placed into an Endo Catch and brought out through the 10 mm trocar site. The abdomen was irrigated. There is no bleeding seen. The trochars withdrawn. The skin was closed interrupted 3-0 Monocryl suture. Dermabond dressing was applied. Patient was sent to recovery room in stable condition.
[2019-07-10] MEDS: HYDROmorphone 1 MG/ML 1 ML SYRINGE IVP ONE ×2 (15:51→16:06)
[2019-07-10] MEDS: SODIUM CHLORIDE 0.9% 1,000 ML IV SCH (16:07)
[2019-07-10] MEDS: METOCLOPRAMIDE 5 MG/ML 2 ML VIAL IVP SCH (18:02)
[2019-07-11] MEDS: PIPERACILLIN-TAZOBACTAM 3.375 GM in SODIUM CHLORIDE 0.9% 100 ML IVPB SCH ×2 (01:20→09:00)
[2019-07-11] MEDS: HEPARIN SODIUM,PORCINE 5,000 UNIT/ML 1 ML VIAL SQ SCH ×2 (01:21→08:59)
[2019-07-11] MEDS: METOCLOPRAMIDE 5 MG/ML 2 ML VIAL IVP SCH ×3 (01:22→13:08)
[2019-07-11] MEDS: SODIUM CHLORIDE 0.9% 1,000 ML IV SCH ×2 (01:26→09:00)
[2019-07-11] MEDS ORDERED: PANTOPRAZOLE 40 MG/10 ML VIAL IVP SCH (09:00)
[2019-07-11 12:33] VITALS: BP 131/74; PULSE 86; RESP 17; TEMP 98.2
--- NOTE | 2019-07-11 14:07 | P.DS ---
Providers Date of admission: 07/10/19 13:36 Expected date of discharge: 07/11/19 Attending physician: Mayank Miller Consults: 07/10/19 13:40 Consult Physician Routine Consulting Provider: Mirza North Consult Reason/Comments: medical management Do you want consulting provider notified?: Yes Primary care physician: Maira Meneses Hospital Course: 44-year-old male who presents to emergency room with chief complaint of abdominal pain. Patient was found to have acute appendicitis. Patient underwent laparoscopic appendectomy with Dr. Miller on 07/10/2019. Patient is doing well postoperatively without any immediate complications. He is tolerating diet without nausea or vomiting. Vital signs are stable. Patient is controlled on oral medications. He is stable for discharge home today. Please see EMR for further hospital course details. Discharge diagnosis 1. Acute appendicitis, status post laparoscopic appendectomy Nurse practitioner note has been reviewed by physician. Signing provider agrees with the documented findings, assessment, and plan of care. Patient Condition at Discharge: Stable Plan - Discharge Summary New Discharge Prescriptions: New Hydrocodone/Acetaminophen [[place] 5-325] 1 tab PO Q6HR PRN #10 tab PRN Reason: Pain No Action Vit C/E/Zn/Coppr/Lutein/Zeaxan [Preservision Areds 2 Softgel] 1 cap PO QAM L.acidoph,Paracasei, B.lactis [Probiotic] 1 cap PO DAILY Discharge Medication List Vit C/E/Zn/Coppr/Lutein/Zeaxan [Preservision Areds 2 Softgel] 1 cap PO QAM 01/07/18 [History] L.acidoph,Paracasei, B.lactis [Probiotic] 1 cap PO DAILY 07/10/19 [History] Hydrocodone/Acetaminophen [[place] 5-325] 1 tab PO Q6HR PRN #10 tab 07/11/19 [Rx] Follow up Appointment(s)/Referral(s): Maira Meneses MD [Primary Care Provider] - 07/14/19 12:30 pm Mayank Miller MD [STAFF PHYSICIAN] - 07/18/19 2:10 pm Patient Instructions/Handouts: Hydrocodone/Acetaminophen (By mouth), Laparoscopic Appendectomy (DC) Activity/Diet/Wound Care/Special Instructions: No driving while taking [place] No lifting over 10 pounds You may shower. No soaking or tub baths Very light activity until you are reevaluated at your follow up appointment with your surgeon
--- NOTE | 2019-07-11 14:09 | P.CONS ---
History of Present Illness - Reason for Consult Acute appendicitis - History of Present Illness 45-year-old male came in with the right sided abdominal pain and on for 5 days along with the vomiting and nausea. Patient is found to have appendicitis subsequently underwent appendectomy patient was Zosyn initially. Patient doesn't denied any fever chills dysuria is clinically doing well is did pass gas did not move his bowel yet. Review of Systems REVIEW OF SYSTEMS: CONSTITUTIONAL: No fever, no malaise, no fatigue. HEENT: No recent visual problems or hearing problems. Denied any sore throat. CARDIOVASCULAR: No chest pain, orthopnea, PND, no palpitations, no syncope. PULMONARY: No shortness of breath, no cough, no hemoptysis. GASTROINTESTINAL: As mentioned in HPI NEUROLOGICAL: No headaches, no weakness, no numbness. HEMATOLOGICAL: Denies any bleeding or petechiae. GENITOURINARY: Denies any burning micturition, frequency, or urgency. MUSCULOSKELETAL/RHEUMATOLOGICAL: Denies any joint pain, swelling, or any muscle pain. ENDOCRINE: Denies any polyuria or polydipsia. The rest of the 14-point review of systems is negative. Past Medical History Past Medical History: No Reported History Additional Past Medical History / Comment(s): diverticulitis, thicken nair of gallbladder History of Any Multi-Drug Resistant Organisms: None Reported Additional Past Surgical History / Comment(s): kidney surgery Past Anesthesia/Blood Transfusion Reactions: No Reported Reaction Past Psychological History: No Psychological Hx Reported Smoking Status: Former smoker Past Alcohol Use History: Occasional Past Drug Use History: None Reported - Past Family History Father Family Medical History: Diabetes Mellitus Mother Family Medical History: Hypertension Medications and Allergies Home Medications Medication Instructions Recorded Confirmed Type Vit C/E/Zn/Coppr/Lutein/Zeaxan 1 cap PO QAM 01/07/18 07/10/19 History [Preservision Areds 2 Softgel] L.acidoph,Paracasei, B.lactis 1 cap PO DAILY 07/10/19 07/10/19 History [Probiotic] Hydrocodone/Acetaminophen [[place] 1 tab PO Q6HR PRN #10 tab 07/11/19 Rx 5-325] Allergies Allergy/AdvReac Type Severity Reaction Status Date / Time No Known Allergies Allergy Verified 07/10/19 14:10 Physical Exam Vitals: Vital Signs Temp Pulse Pulse Resp BP Pulse Ox 07/11/19 12:32 98.2 F 86 17 131/74 07/11/19 08:00 97.8 F 83 16 130/80 95 07/11/19 04:39 97.8 F 69 18 123/71 92 L 07/11/19 00:00 18 07/10/19 21:00 98.0 F 104 H 18 143/85 93 L 07/10/19 17:15 94 16 123/80 93 L 07/10/19 16:42 79 16 134/79 93 L 07/10/19 16:26 98.1 F 85 16 136/88 91 L 07/10/19 16:20 67 79 16 07/10/19 16:00 67 16 125/77 98 07/10/19 15:42 62 16 123/79 99 07/10/19 15:25 98 F 69 12 130/84 96 Intake and Output 07/10/19 07/11/19 07/11/19 22:59 06:59 14:59 Intake Total 670 500 580 Output Total 5 Balance 665 500 580 Intake: IV 250 Intake, IV Titration 300 500 Amount Piperacillin-Tazobactam 3 100 .375 gm In Sodium Chloride 0.9% 100 ml @ 200 mls/hr IVPB ONCE STA Rx#:[id number] Sodium Chloride 0.9% 1, 300 000 ml @ 100 mls/hr IV . Q10H REBECA Rx#:[id number] Sodium Chloride 0.9% 100 400 ml @ 0 mls/hr IV .STK-MED ONE with ceFAZolin 2,000 mg Rx#:[id number] Oral 120 580 Output: Estimated Blood Loss 5 Other: Voiding Method Toilet Toilet # Voids 2 2 PHYSICAL EXAMINATION: GENERAL: The patient is alert and oriented x3, not in any acute distress. Well developed, well nourished. HEENT: Pupils are round and equally reacting to light. EOMI. No scleral icterus. No conjunctival pallor. Normocephalic, atraumatic. No pharyngeal erythema. No thyromegaly. CARDIOVASCULAR: S1 and S2 present. No murmurs, rubs, or gallops. PULMONARY: Chest is clear to auscultation, no wheezing or crackles. ABDOMEN: Soft, nontender, nondistended, normoactive bowel sounds. No palpable organomegaly. MUSCULOSKELETAL: No joint swelling or deformity. EXTREMITIES: No cyanosis, clubbing, or pedal edema. NEUROLOGICAL: Gross neurological examination did not reveal any focal deficits. SKIN: No rashes. Results CBC & Chem 7: 07/10/19 11:23 07/10/19 11:23 Assessment and Plan Plan: -Acute appendicitis: Patient is status post) ectomy not require any antibiotics patient is being discharged today no further recommendations from medicine -Tachycardia which resolved at this time secondary to acute appendicitis and sepsis from appendicitis
== END 2019-07-11 14:52 | disposition home or self-care (01) ==
LOC: EC 10:43 → 5NMEDONC 13:36
PROVIDERS: ADMIT Surgery; ATTEND Surgery
DX: K35.80 Unspecified acute appendicitis (principal); K57.92 Diverticulitis of intestine, part unspecified, without perforation or abscess without bleeding; Z87.891 Personal history of nicotine dependence; Z79.899 Other long term (current) drug therapy
CPT/HCPCS: 99285; 36415; 88304; 80053; 82150; 83690; 85025; 81001; 74177; 44970; G0378 ×2; J2543; J2250; J1644 ×2; J1100; J2710; J2765 ×2; J2405; J0690; J2001; J3010; J1885; J1170 ×2; J0330; J2704; C9113; Q9967

== ENCOUNTER → 2022-04-28 | Outpatient (CLI) | payer BC ==
--- NOTE | 2022-04-28 08:43 | CT ---
EXAMINATION TYPE: CT sinus wo con DATE OF EXAM: 04/28/2022 COMPARISON: HISTORY: Sinusitis CT DLP: 603.00 mGycm. Automated Exposure Control for Dose Reduction was Utilized. TECHNIQUE: CT scan of the sinuses is performed without contrast, axial images are obtained, coronal r eformatted images are also reviewed. FINDINGS: There is some mild mucosal thickening involving the maxillary sinuses and moderate mucosal thickening involving the ethmoidal air cells. Mild mucosal thickening involving the frontal sinus and more mild to moderate changes involving the sphenoid sinus. Small mucous retention cyst or polyps ar e seen within both maxillary sinuses. Slight nasal septal deviation. There is occlusion of the left ostiomeatal complex and narrowing of th e right. No air-fluid levels. Intracranial and intraorbital structures are symmetric. Osseous structures are intact. IMPRESSION: 1. [id number] chronic sinusitis as discussed above with occlusion of the left posterior medial complex and narrowing on the right. Most marked findings involving the ethmoid air cells.
== END | disposition home or self-care (01) ==
LOC: RADCTMAIN 08:15
PROVIDERS: ATTEND Otolaryngology
DX: J32.9 Chronic sinusitis, unspecified (principal); J34.2 Deviated nasal septum; J34.89 Other specified disorders of nose and nasal sinuses
CPT/HCPCS: 70486